=== PATIENT | female | born 1970 | race Caucasian/White ===

== ENCOUNTER 2017-08-10 15:00 | Emergency (ER) | payer MEDICAID ==
[~2017-08-10] VITALS: Ht 162.6 cm; Wt 85.3 kg
[2017-08-10 15:08] VITALS: BP 140/83
--- NOTE | 2017-08-10 15:17 | NUR ---
PT AMBULATED TO BED 11
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
--- NOTE | 2017-08-10 15:28 | NUR ---
Patient being evaluated by physician at bedside.
[2017-08-10] MEDS ORDERED: KETOROLAC 60 MG/2 ML VIAL IM ONE (15:30)
[2017-08-10 15:56] VITALS: BP 140/83
== END 2017-08-10 15:57 | disposition home or self-care (01) ==
LOC: MED 15:00
DX: M54.6 Pain in thoracic spine (principal); M79.1 Myalgia; I10 Essential (primary) hypertension; V43.52XA Car driver injured in collision with other type car in traffic accident, initial encounter; Y93.I9 Activity, other involving external motion; Y92.89 Other specified places as the place of occurrence of the external cause; Y99.8 Other external cause status
CPT/HCPCS: 96372; 99283; J1885

== ENCOUNTER 2020-09-20 21:32 | Emergency (ER) | payer MEDICAID ==
[~2020-09-20] VITALS: Ht 162.6 cm; Wt 83.9 kg
[2020-09-20 21:32] VITALS: BP 174/98
--- NOTE | 2020-09-20 21:32 | NUR ---
PT YADIRA ALS. TAKEN TO BED 6
--- NOTE | 2020-09-20 22:20 | NUR ---
PATIENT AMBULATING TO BATHROOM WITH STEADY GAIT.
--- NOTE | 2020-09-20 22:52 | NUR ---
Dr. Rodas examining patient.
--- NOTE | 2020-09-20 22:58 | NUR ---
PATIENT ASSESSMENTED COMPLETED BY RADHA RODRIGUEZ, NO NURSING INTERVENTIONS NEEDED.
[2020-09-20 23:08] VITALS: BP 148/103
--- NOTE | 2020-09-20 23:08 | NUR ---
Patient discharged with v/s stable. Written and verbal after care instructions given and explained. Patient verbalized understanding. Ambulatory with steady gait. All questions addressed prior to discharge. Advised to follow up with PMD.
== END 2020-09-20 23:08 | disposition home or self-care (01) ==
LOC: MED 21:32
DX: R07.89 Other chest pain (principal); R06.02 Shortness of breath; I10 Essential (primary) hypertension; Z98.890 Other specified postprocedural states
CPT/HCPCS: 93005; 99283

== ENCOUNTER 2021-02-21 17:22 | Emergency (ER) | payer MEDICAID ==
[~2021-02-21] VITALS: Ht 162.6 cm; Wt 81.6 kg
[2021-02-21 17:26] VITALS: BP 190/90
--- NOTE | 2021-02-21 17:41 | NUR ---
PATIENT AMBULATED TO [facility].
--- NOTE | 2021-02-21 17:49 | NUR ---
51 Y FEMALE C/O IN L EAR FOR THE PAST. PT STATED THE PAIN IS RADIATING TO HER JAW AND HEAD REGION. DENIES ANY TRAUMA AT THIS TIME. BLOOD SUGAR 143 , BP 190/90 AT THIS TIME. PMH: DM, HTN MED: NONE
--- NOTE | 2021-02-21 17:54 | NUR ---
DR. DELGADILLO EVALUATING PT
--- NOTE | 2021-02-21 17:54 | NUR ---
DR. DELGADILLO AT PT BEDSIDE FOR FURTHER EVALUATION.
[2021-02-21] MEDS ORDERED: CIPR7.5S OT (18:00)
[2021-02-21 18:03] VITALS: BP 190/90
--- NOTE | 2021-02-21 18:03 | NUR ---
Patient discharged with v/s stable. Written and verbal after care instructions given and explained. Patient alert, oriented and verbalized understanding of instructions. Ambulatory with steady gait. All questions addressed prior to discharge. ID band removed. Patient advised to follow up with PMD. Rx of CIPRODEX OTIC SUSPENSION given. Patient educated on indication of medication including possible reaction and side effects. Opportunity to ask questions provided and answered.
== END 2021-02-21 18:03 | disposition home or self-care (01) ==
LOC: MED 17:22
DX: H60.92 Unspecified otitis externa, left ear (principal)
CPT/HCPCS: 99283

== ENCOUNTER 2021-10-24 11:25 | Emergency (ER) | payer MEDICAID, OTHER ==
[~2021-10-24] VITALS: Ht 162.6 cm; Wt 81.2 kg
[~2021-10-24 11:25] MED LIST: CIPR7.5S OT
[2021-10-24 11:30] VITALS: BP 154/88
--- NOTE | 2021-10-24 11:35 | NUR ---
Ambulated to bed 11 with steady/even gait.
--- NOTE | 2021-10-24 11:55 | NUR ---
51/F C/O LOWER ABDOMINAL PAIN RADIATING TO HER LOWER BACK X2 DAYS. DENIES N/V/D, CP, SOB. REPORTS BEING DX WITH UTI LAST WEEK BUT REPORTS DID NOT TAKE HER RX OF ABX. PATIENT STATES 02/28, PRESSURE/CONSTANT PAIN THAT WORSENS WITH AMBULATING AND FROM SITTING TO STANDING POSITION. DENIES TAKING PAIN MEDS. BED LOCKED IN LOWEST POSITION, SIDE RAILS X 1. PMH: HX OF GALLSTONES, FIBROIDS NKA
[2021-10-24 11:57] LABS: BASOPHILS % (AUTO) 0.6 % (0.0-2.0); EOSINOPHILS # (AUTO) 0.1 K/uL (0-0.4); HEMATOCRIT 33.8 % (36-48); HEMOGLOBIN 10.6 g/dL (12.0-16.0); LYMPHOCYTES # (AUTO) 1.4 K/uL (2.5-16.5); LYMPHOCYTES % (AUTO) 35.8 % (20.5-51.1); MEAN CORPUSCULAR HEMOGLOBIN 23 pg (27-31); MEAN CORPUSCULAR HGB CONC 31 g/dL (33-37); MEAN CORPUSCULAR VOLUME 73.3 fL (80-94); MONOCYTES # (AUTO) 0.4 K/uL (0.8-1.0); MONOCYTES % (AUTO) 8.7 % (1.7-9.3); NEUTROPHILS # (AUTO) 2.1 K/uL (1.8-7.7); NEUTROPHILS % (AUTO) 52.9 % (42.2-75.2); PLATELET COUNT (AUTO) 312 K/uL (140-450); RED CELL DISTRIBUTION WIDTH 18.3 % (11.6-13.7)
[2021-10-24 12:19] LABS: APPEARANCE,URINE CLOUDY (CLEAR); BILIRUBIN,URINE NEGATIVE (NEGATIVE); BLOOD, URINE NEGATIVE (NEGATIVE); COLOR,URINE YELLOW (YELLOW); LEUKOCYTE ESTERASE ,URINE NEGATIVE (NEGATIVE); NITRITE, URINE NEGATIVE (NEGATIVE); PH,URINE 5.5 (5.0-9.0); UGLUCOSE 1+ (NEGATIVE)
[2021-10-24 12:45] LABS: ALBUMIN 3.3 g/dL (3.4-5.0); CARBON DIOXIDE 27.4 mmol/L (21-32); POTASSIUM 4.4 mmol/L (3.5-5.1); TOTAL BILIRUBIN 0.3 mg/dL (0.0-1.0)
[2021-10-24] MEDS ORDERED: IBUP-2809 PO (13:28)
[2021-10-24 13:49] VITALS: BP 148/79
== END 2021-10-24 13:50 | disposition home or self-care (01) ==
LOC: MED 11:25
DX: R10.9 Unspecified abdominal pain (principal); I10 Essential (primary) hypertension; E11.65 Type 2 diabetes mellitus with hyperglycemia; Z87.442 Personal history of urinary calculi
CPT/HCPCS: 36415; 80053; 81003; 81025; 85025; 99283